=== PATIENT | male | born 1955 | race Asian ===

== ENCOUNTER 2019-03-27 17:54 | Inpatient (IN) | payer SELFPAY ==
[~2019-03-27] VITALS: Ht 165.1 cm; Wt 72.5 kg
[2019-03-27] MEDS ORDERED: CARV6 PO (17:58)
[2019-03-27] MEDS ORDERED: LOSA25TA41 PO (17:58)
[2019-03-27] MEDS ORDERED: GLIP5 PO (17:58)
[2019-03-27] MEDS ORDERED: ATOR20TA86 PO (17:58)
[2019-03-27] MEDS ORDERED: CLOP75TA3 PO (17:58)
[2019-03-27] MEDS ORDERED: ASPI81 PO (17:58)
[2019-03-27 18:35] LABS: EOSINOPHILS % (AUTO) 0.8 % (1.0-6.0); HEMATOCRIT 47.1 % (41-53); HEMOGLOBIN 15.6 g/dL (13.5-17.5); LYMPHOCYTES # (AUTO) 1.8 K/uL (1.0-4.8); LYMPHOCYTES % (AUTO) 16.9 % (22.0-44.0); MEAN CORPUSCULAR HEMOGLOBIN 31.1 pg (26.0-34.0); MEAN CORPUSCULAR HGB CONC 33.1 G/dL (31.0-37.0); MEAN CORPUSCULAR VOLUME 94 fL (80-100); MONOCYTES # (AUTO) 0.4 K/uL (0.1-1.0); MONOCYTES % (AUTO) 3.4 % (2.0-9.0); NEUTROPHILS # (AUTO) 8.2 K/uL (1.8-7.7); NEUTROPHILS % (AUTO) 77.9 % (40.0-70.0); PLATELET COUNT (AUTO) 214 K/uL (150-450); RED BLOOD CELL COUNT(AUTO) 5.01 MIL/uL (4.50-5.90); RED CELL DISTRIBUTION WIDTH 13.7 % (11.5-14.5)
[2019-03-27 18:39] LABS: CREATININE 1.48 mg/dL (0.60-1.30)
[2019-03-27 19:03] LABS: ALBUMIN 3.8 g/dL (3.4-5.0); BILIRUBIN,TOTAL 0.4 mg/dL (0.1-1.0); TOTAL PROTEIN, SERUM 7.7 g/dL (6.4-8.2)
[2019-03-27 19:31] LABS: INFLUENZA TYPE A NEGATIVE FOR TYPE A (NEGATIVE); INFLUENZA TYPE B NEGATIVE FOR TYPE B (NEGATIVE)
[2019-03-27] MEDS ORDERED: SODIUM CHLORIDE 0.9% 1,000 ML IV ONE ×4 (19:45→22:15)
[2019-03-27] MEDS ORDERED: AMOX TR/POT CLAV 500 MG/125 MG TABLET PO ONE (21:00)
[2019-03-27] MEDS ORDERED: DOXYCYCLINE HYCLATE 100 MG CAPSULE PO ONE (21:00)
[2019-03-27] MEDS ORDERED: BISACODYL 10 MG RECTAL RECTAL SUPPOSITORY PR PRN (21:30)
[2019-03-27] MEDS ORDERED: CefTRIAXone 1 GM/DEXTROSE 50 ML IV ONE (21:30)
[2019-03-27] MEDS ORDERED: ALBUTEROL SULFATE 2.5 MG/0.5 ML NEB SOLUTION NEB PRN (21:30)
[2019-03-27] MEDS ORDERED: DEXTROSE 50%-WATER 25 GM/50 ML SYRINGE IVP PRN (21:30)
[2019-03-27] MEDS ORDERED: AZITHROMYCIN 500 MG/NS 250 ML IV ONE (21:30)
[2019-03-27 22:03] LABS: LACTIC ACID 3.1 mmol/L (0.4-2.0)
[2019-03-27 22:31] LABS: APPEARANCE,URINE CLEAR (CLEAR); BILIRUBIN,URINE NEGATIVE (NEGATIVE); GLUCOSE, URINE (UA) 100 mg/dL (NEGATIVE); KETONES,URINE NEGATIVE (NEGATIVE); LEUKOCYTE ESTERASE ,URINE NEGATIVE (NEGATIVE); NITRATE,URINE NEGATIVE (NEGATIVE); OCCULT BLOOD,URINE NEGATIVE (NEGATIVE); PROTEIN,URINE NEGATIVE (NEGATIVE); UROBILINOGEN,URINE 0.2 mg/dL (<=1.0)
[2019-03-27 22:51] LABS: BACTERIA,URINE None Seen /HPF (None Seen); RBC,URINE 0-2 /HPF (0-2); WBC,URINE None Seen /HPF (0-5)
[2019-03-27 22:52] LABS: SQUAMOUS EPITHELIAL CELL,UR Rare /LPF (None Seen)
[2019-03-27 23:23] VITALS: BP 113/66
[2019-03-28 04:28] VITALS: BP 94/51
[2019-03-28] MEDS: ACETAMINOPHEN 325 MG TABLET PO PRN ×2 (04:31→16:35)
[2019-03-28] MEDS: GlipiZIDE 5 MG TABLET PO SCH ×2 (06:07→17:33)
[2019-03-28 06:44] LABS: GLUCOMETER DEV NAME(LOC) 5N.1; GLUCOSE,POINT OF CARE 162 MG/DL (70-110)
[2019-03-28 06:55] LABS: CALCIUM, TOTAL 7.9 mg/dL (8.8-10.5); CREATININE 1.34 mg/dL (0.60-1.30)
[2019-03-28 07:11] LABS: BASOPHILS % (AUTO) 0.1 % (0.0-2.0); EOSINOPHILS % (AUTO) 0.1 % (1.0-6.0); HEMATOCRIT 40.4 % (41-53); HEMOGLOBIN 13.4 g/dL (13.5-17.5); LYMPHOCYTES # (AUTO) 0.9 K/uL (1.0-4.8); LYMPHOCYTES % (AUTO) 8.5 % (22.0-44.0); MEAN CORPUSCULAR HEMOGLOBIN 31.1 pg (26.0-34.0); MEAN CORPUSCULAR VOLUME 94 fL (80-100); MONOCYTES # (AUTO) 0.4 K/uL (0.1-1.0); MONOCYTES % (AUTO) 4.2 % (2.0-9.0); NEUTROPHILS # (AUTO) 8.9 K/uL (1.8-7.7); PLATELET COUNT (AUTO) 184 K/uL (150-450); RED BLOOD CELL COUNT(AUTO) 4.29 MIL/uL (4.50-5.90)
[2019-03-28 07:13] LABS: NEUTROPHILS % (AUTO) 87.1 % (40.0-70.0)
[2019-03-28 07:45] LABS: LACTIC ACID 2.3 mmol/L (0.4-2.0)
[2019-03-28 07:58] VITALS: BP 101/62
[2019-03-28] MEDS: FAMOTIDINE 20 MG TABLET PO SCH (08:11)
[2019-03-28] MEDS: CLOPIDOGREL BISULFATE 75 MG TABLET PO SCH (08:11)
[2019-03-28] MEDS: ASPIRIN 81 MG CHEWABLE TABLET PO SCH (08:12)
[2019-03-28] MEDS: CARVEDILOL 6.25 MG TABLET PO SCH ×2 (08:12→21:00)
[2019-03-28] MEDS: DOCUSATE SODIUM 100 MG CAPSULE PO SCH ×2 (08:12→21:00)
[2019-03-28] MEDS: ATORVASTATIN CALCIUM 20 MG TABLET PO SCH (08:12)
[2019-03-28] MEDS ORDERED: HEPARIN SODIUM,PORCINE 5,000 UNITS/ML VIAL SQ SCH (09:00)
[2019-03-28 11:33] VITALS: BP 118/68
[2019-03-28 16:21] VITALS: BP 113/74
[2019-03-28] MEDS: BENZONATATE 100 MG CAPSULE PO SCH ×2 (16:35→23:37)
[2019-03-28 18:20] LABS: GLUCOMETER DEV NAME(LOC) 5N.2; GLUCOSE,POINT OF CARE 166 MG/DL (70-110)
[2019-03-28 20:54] VITALS: BP 108/60
[2019-03-28] MEDS: CefTRIAXone 1 GM/DEXTROSE 50 ML IV SCH (21:05)
[2019-03-28] MEDS: INSULIN LISPRO 100 UNITS/ML SQ PRN (21:38)
[2019-03-28] MEDS: AZITHROMYCIN 500 MG/NS 250 ML IV SCH (23:37)
[2019-03-29] VITALS (7 sets, daily range): BP systolic 111–148; BP diastolic 61–93
[2019-03-29] MEDS: GlipiZIDE 5 MG TABLET PO SCH ×2 (06:22→17:34)
[2019-03-29] MEDS: INSULIN LISPRO 100 UNITS/ML SQ PRN ×4 (06:33→22:35)
[2019-03-29 07:05] LABS: BASOPHILS % (AUTO) 0.1 % (0.0-2.0); EOSINOPHILS % (AUTO) 0.1 % (1.0-6.0); HEMATOCRIT 38.7 % (41-53); HEMOGLOBIN 12.8 g/dL (13.5-17.5); LYMPHOCYTES # (AUTO) 1.1 K/uL (1.0-4.8); MEAN CORPUSCULAR HEMOGLOBIN 31.1 pg (26.0-34.0); MEAN CORPUSCULAR VOLUME 94 fL (80-100); MONOCYTES # (AUTO) 0.8 K/uL (0.1-1.0); MONOCYTES % (AUTO) 4.8 % (2.0-9.0); NEUTROPHILS # (AUTO) 14.3 K/uL (1.8-7.7); PLATELET COUNT (AUTO) 178 K/uL (150-450); RED BLOOD CELL COUNT(AUTO) 4.11 MIL/uL (4.50-5.90); RED CELL DISTRIBUTION WIDTH 13.9 % (11.5-14.5)
[2019-03-29 07:17] LABS: ANION GAP 6 mmol/L (8-16); CALCIUM, TOTAL 8.6 mg/dL (8.8-10.5); CARBON DIOXIDE 22 mmol/L (22-29); CHLORIDE 103 mmol/L (98-107); CREATININE 1.16 mg/dL (0.60-1.30); GLOMERULAR FILTR. RATE CALC > 60 mL/min (>60); GLUCOSE,RANDOM 172 mg/dL (70-110); POTASSIUM 3.6 mmol/L (3.5-5.1); SODIUM SERUM 131 mmol/L (136-145); UREA NITROGEN, BLOOD 17 mg/dL (7-18)
[2019-03-29] MEDS: CLOPIDOGREL BISULFATE 75 MG TABLET PO SCH (09:03)
[2019-03-29] MEDS: DOCUSATE SODIUM 100 MG CAPSULE PO SCH ×2 (09:03→20:48)
[2019-03-29] MEDS: ATORVASTATIN CALCIUM 20 MG TABLET PO SCH (09:03)
[2019-03-29] MEDS: BENZONATATE 100 MG CAPSULE PO SCH ×3 (09:03→23:15)
[2019-03-29] MEDS: CARVEDILOL 6.25 MG TABLET PO SCH ×2 (09:04→20:48)
[2019-03-29] MEDS: FAMOTIDINE 20 MG TABLET PO SCH (09:04)
[2019-03-29] MEDS: ASPIRIN 81 MG CHEWABLE TABLET PO SCH (09:04)
[2019-03-29 11:45] LABS: GLUCOMETER DEV NAME(LOC) 5S.1; GLUCOSE,POINT OF CARE 199 MG/DL (70-110)
[2019-03-29 16:40] LABS: GLUCOMETER DEV NAME(LOC) 5S.1; GLUCOSE,POINT OF CARE 254 MG/DL (70-110)
[2019-03-29 18:49] LABS: GLUCOMETER DEV NAME(LOC) 5S.1; GLUCOSE,POINT OF CARE 215 MG/DL (70-110)
[2019-03-29] MEDS: ACETAMINOPHEN 325 MG TABLET PO PRN (20:47)
[2019-03-29] MEDS: CefTRIAXone 1 GM/DEXTROSE 50 ML IV SCH (20:48)
[2019-03-29] MEDS: AZITHROMYCIN 500 MG/NS 250 ML IV SCH (23:15)
[2019-03-30 04:37] VITALS: BP 116/72
[2019-03-30 06:18] LABS: BASOPHILS % (AUTO) 0.3 % (0.0-2.0); HEMATOCRIT 39.1 % (41-53); HEMOGLOBIN 12.6 g/dL (13.5-17.5); LYMPHOCYTES # (AUTO) 1.7 K/uL (1.0-4.8); MEAN CORPUSCULAR HEMOGLOBIN 30.4 pg (26.0-34.0); MEAN CORPUSCULAR HGB CONC 32.3 G/dL (31.0-37.0); MEAN CORPUSCULAR VOLUME 94 fL (80-100); MONOCYTES % (AUTO) 6.7 % (2.0-9.0); NEUTROPHILS # (AUTO) 11.4 K/uL (1.8-7.7); PLATELET COUNT (AUTO) 208 K/uL (150-450); RED BLOOD CELL COUNT(AUTO) 4.16 MIL/uL (4.50-5.90); RED CELL DISTRIBUTION WIDTH 13.7 % (11.5-14.5)
[2019-03-30] MEDS: GlipiZIDE 5 MG TABLET PO SCH ×2 (06:53→17:46)
[2019-03-30] MEDS: INSULIN LISPRO 100 UNITS/ML SQ PRN ×4 (06:56→21:38)
[2019-03-30 07:38] VITALS: BP 143/80
[2019-03-30] MEDS: BENZONATATE 100 MG CAPSULE PO SCH ×2 (08:34→17:46)
[2019-03-30] MEDS: CARVEDILOL 6.25 MG TABLET PO SCH ×2 (08:34→21:00)
[2019-03-30] MEDS: DOCUSATE SODIUM 100 MG CAPSULE PO SCH ×2 (08:34→21:00)
[2019-03-30] MEDS: FAMOTIDINE 20 MG TABLET PO SCH (08:34)
[2019-03-30] MEDS: ASPIRIN 81 MG CHEWABLE TABLET PO SCH (08:34)
[2019-03-30] MEDS: ATORVASTATIN CALCIUM 20 MG TABLET PO SCH (08:34)
[2019-03-30] MEDS: CLOPIDOGREL BISULFATE 75 MG TABLET PO SCH (08:34)
[2019-03-30 09:10] LABS: GLUCOMETER DEV NAME(LOC) 5S.1; GLUCOSE,POINT OF CARE 153 MG/DL (70-110)
[2019-03-30 09:10] LABS: GLUCOMETER DEV NAME(LOC) 5S.1; GLUCOSE,POINT OF CARE 113 MG/DL (70-110)
[2019-03-30 11:25] VITALS: BP 122/80
[2019-03-30 12:16] LABS: GLUCOMETER DEV NAME(LOC) 5S.2A; GLUCOSE,POINT OF CARE 148 MG/DL (70-110)
[2019-03-30 12:16] LABS: GLUCOMETER DEV NAME(LOC) 5S.2A; GLUCOSE,POINT OF CARE 174 MG/DL (70-110)
[2019-03-30 15:25] VITALS: BP 121/70
[2019-03-30 17:41] LABS: GLUCOMETER DEV NAME(LOC) 5N.2; GLUCOSE,POINT OF CARE 210 MG/DL (70-110)
[2019-03-30 20:05] LABS: GLUCOMETER DEV NAME(LOC) 5N.1; GLUCOSE,POINT OF CARE 146 MG/DL (70-110)
[2019-03-30 21:01] VITALS: BP 145/80
[2019-03-30] MEDS: ACETAMINOPHEN 325 MG TABLET PO PRN (21:35)
[2019-03-30] MEDS: CefTRIAXone 1 GM/DEXTROSE 50 ML IV SCH (23:18)
[2019-03-31] MEDS: BENZONATATE 100 MG CAPSULE PO SCH ×4 (00:05→21:49)
[2019-03-31] MEDS: AZITHROMYCIN 500 MG/NS 250 ML IV SCH ×2 (00:05→21:49)
[2019-03-31 00:38] VITALS: BP 120/76
[2019-03-31 03:24] LABS: GLUCOMETER DEV NAME(LOC) 5S.1; GLUCOSE,POINT OF CARE 193 MG/DL (70-110)
[2019-03-31 04:55] VITALS: BP 130/73
[2019-03-31] MEDS: GlipiZIDE 5 MG TABLET PO SCH ×2 (06:29→17:11)
[2019-03-31 07:54] VITALS: BP 122/72
[2019-03-31] MEDS: FAMOTIDINE 20 MG TABLET PO SCH (08:53)
[2019-03-31] MEDS: ATORVASTATIN CALCIUM 20 MG TABLET PO SCH (08:54)
[2019-03-31] MEDS: ASPIRIN 81 MG CHEWABLE TABLET PO SCH (08:54)
[2019-03-31] MEDS: CARVEDILOL 6.25 MG TABLET PO SCH ×2 (08:54→20:29)
[2019-03-31] MEDS: CLOPIDOGREL BISULFATE 75 MG TABLET PO SCH (08:54)
[2019-03-31] MEDS: DOCUSATE SODIUM 100 MG CAPSULE PO SCH ×2 (08:54→20:29)
[2019-03-31 10:59] LABS: LEGIONELLA PNEUMO AG URINE Negative (Negative); ORGANISM ID Not indicated.; S PNEUMO SOURCE Urine; STREP PNEUMONIAE AG URINE Negative (Negative); STREP.PNEUMO BODY FLUID CULT. Not Indicated
[2019-03-31 11:16] VITALS: BP 122/76
[2019-03-31] MEDS: INSULIN LISPRO 100 UNITS/ML SQ PRN ×3 (12:08→20:31)
[2019-03-31 13:25] LABS: GLUCOMETER DEV NAME(LOC) 5S.1; GLUCOSE,POINT OF CARE 225 MG/DL (70-110)
[2019-03-31 13:25] LABS: GLUCOMETER DEV NAME(LOC) 5S.1; GLUCOSE,POINT OF CARE 168 MG/DL (70-110)
[2019-03-31 15:39] VITALS: BP 130/76
[2019-03-31 19:54] LABS: GLUCOMETER DEV NAME(LOC) 5S.1; GLUCOSE,POINT OF CARE 216 MG/DL (70-110)
[2019-03-31] MEDS: ACETAMINOPHEN 325 MG TABLET PO PRN (20:29)
[2019-03-31] MEDS: CefTRIAXone 1 GM/DEXTROSE 50 ML IV SCH (20:30)
[2019-03-31] MEDS ORDERED: SODIUM CHLORIDE 0.9% 250 ML IV ONE (20:38)
[2019-03-31 20:48] VITALS: BP 124/79
[2019-04-01 00:15] VITALS: BP 96/70
[2019-04-01 04:54] VITALS: BP 111/76
[2019-04-01] MEDS: GlipiZIDE 5 MG TABLET PO SCH (06:22)
[2019-04-01] MEDS: INSULIN LISPRO 100 UNITS/ML SQ PRN ×2 (06:24→11:47)
[2019-04-01 06:33] LABS: ANION GAP 14 mmol/L (8-16); CALCIUM, TOTAL 9.4 mg/dL (8.8-10.5); CARBON DIOXIDE 22 mmol/L (22-29); CHLORIDE 99 mmol/L (98-107); GLOMERULAR FILTR. RATE CALC > 60 mL/min (>60); GLUCOSE,RANDOM 166 mg/dL (70-110); POTASSIUM 4.1 mmol/L (3.5-5.1); SODIUM SERUM 135 mmol/L (136-145); UREA NITROGEN, BLOOD 23 mg/dL (7-18)
[2019-04-01 06:38] LABS: BASOPHILS % (AUTO) 0.7 % (0.0-2.0); EOSINOPHILS % (AUTO) 3.3 % (1.0-6.0); HEMATOCRIT 44.2 % (41-53); HEMOGLOBIN 14.5 g/dL (13.5-17.5); LYMPHOCYTES # (AUTO) 2.2 K/uL (1.0-4.8); MEAN CORPUSCULAR HEMOGLOBIN 30.7 pg (26.0-34.0); MEAN CORPUSCULAR HGB CONC 32.7 G/dL (31.0-37.0); MEAN CORPUSCULAR VOLUME 94 fL (80-100); MONOCYTES % (AUTO) 10.9 % (2.0-9.0); NEUTROPHILS # (AUTO) 5.3 K/uL (1.8-7.7); NEUTROPHILS % (AUTO) 60.1 % (40.0-70.0); PLATELET COUNT (AUTO) 270 K/uL (150-450); RED BLOOD CELL COUNT(AUTO) 4.72 MIL/uL (4.50-5.90); RED CELL DISTRIBUTION WIDTH 13.7 % (11.5-14.5)
[2019-04-01 06:40] LABS: GLUCOMETER DEV NAME(LOC) 5S.1; GLUCOSE,POINT OF CARE 168 MG/DL (70-110)
[2019-04-01 06:40] LABS: GLUCOMETER DEV NAME(LOC) 5S.2A; GLUCOSE,POINT OF CARE 165 MG/DL (70-110)
[2019-04-01 07:39] VITALS: BP 131/81
[2019-04-01] MEDS: BENZONATATE 100 MG CAPSULE PO SCH (08:25)
[2019-04-01] MEDS: ASPIRIN 81 MG CHEWABLE TABLET PO SCH (08:25)
[2019-04-01] MEDS: ATORVASTATIN CALCIUM 20 MG TABLET PO SCH (08:25)
[2019-04-01] MEDS: FAMOTIDINE 20 MG TABLET PO SCH (08:25)
[2019-04-01] MEDS: CARVEDILOL 6.25 MG TABLET PO SCH (08:25)
[2019-04-01] MEDS: CLOPIDOGREL BISULFATE 75 MG TABLET PO SCH (08:25)
[2019-04-01] MEDS: DOCUSATE SODIUM 100 MG CAPSULE PO SCH (08:27)
[2019-04-01 10:48] VITALS: BP 151/84
[2019-04-01] MEDS: ACETAMINOPHEN 325 MG TABLET PO PRN (11:11)
[2019-04-03 17:45] LABS: GLUCOMETER DEV NAME(LOC) 5S.2A; GLUCOSE,POINT OF CARE 167 MG/DL (70-110)
== END 2019-04-01 12:30 | disposition home or self-care (01) | DRG 871 ==
LOC: EMS 17:56 → 5S 21:30 → 5N 03-28 11:00
PROVIDERS: ADMIT Internal Medicine; ATTEND Internal Medicine
DX: A41.9 Sepsis, unspecified organism (principal); J18.1 Lobar pneumonia, unspecified organism; N17.9 Acute kidney failure, unspecified; R04.2 Hemoptysis; E11.22 Type 2 diabetes mellitus with diabetic chronic kidney disease; N18.3 Chronic kidney disease, stage 3 (moderate); J45.909 Unspecified asthma, uncomplicated; I25.10 Atherosclerotic heart disease of native coronary artery without angina pectoris; J84.10 Pulmonary fibrosis, unspecified; E78.00 Pure hypercholesterolemia, unspecified; E78.5 Hyperlipidemia, unspecified; I12.9 Hypertensive chronic kidney disease with stage 1 through stage 4 chronic kidney disease, or unspecified chronic kidney disease; Z83.3 Family history of diabetes mellitus; Z95.5 Presence of coronary angioplasty implant and graft; Z82.49 Family history of ischemic heart disease and other diseases of the circulatory system; Z79.899 Other long term (current) drug therapy
CPT/HCPCS: 71250; 83605; 87015; 87040; 87206; 87449; 87804; 87899; 93005; 93306; G0378; J0456; J0696; J1644; J7030; J7050

== ENCOUNTER → 2019-06-05 | Outpatient (CLI) | payer MEDICAID ==
[~2019-06-05] MED LIST: ASPI81 PO; ATOR20TA86 PO; CARV6 PO; CLOP75TA3 PO; GLIP5 PO
== END | disposition home or self-care (01) ==
LOC: RADPV 11:15
PROVIDERS: ATTEND Internal Medicine Nephrology
DX: I10 Essential (primary) hypertension (principal); E11.43 Type 2 diabetes mellitus with diabetic autonomic (poly)neuropathy
CPT/HCPCS: 76770

== ENCOUNTER 2019-08-14 06:00 | Day surgery (SDC) | payer OTHER ==
[~2019-08-14] VITALS: Ht 157.5 cm; Wt 70.9 kg
[~2019-08-14 06:00] MED LIST changes: +SODIUM CHLORIDE 0.9% 1,000 ML ONE
[2019-08-14] MEDS ORDERED: LIDOCAINE 2% 30 ML JELLY TP ONE (06:01)
[2019-08-14] MEDS ORDERED: LIDOCAINE 4% 50 ML SOLUTION TP ONE (06:01)
[2019-08-14] MEDS ORDERED: ALBUTEROL SULFATE 2.5 MG/0.5 ML NEB SOLUTION NEB ONE (06:01)
[2019-08-14] MEDS ORDERED: BENZOCAINE 20% 50 MCG/SPRAY 57 GM TP ONE (06:01)
[2019-08-14] MEDS ORDERED: METF-960 PO (06:14)
[2019-08-14] MEDS ORDERED: OMEP20 PO (06:14)
[2019-08-14] MEDS ORDERED: FLUT16H NASAL (06:14)
[2019-08-14] MEDS ORDERED: LINA5TAB PO (06:14)
[2019-08-14] MEDS ORDERED: MONT10TA21 PO (06:14)
[2019-08-14] MEDS ORDERED: HYDR25TA PO (06:14)
[2019-08-14] MEDS ORDERED: SODIUM CHLORIDE 0.9% 1,000 ML IV ONE (06:30)
[2019-08-14] MEDS ORDERED: MIDAZOLAM HCL 2 MG/2 ML VIAL ONE (07:09)
[2019-08-14] MEDS ORDERED: FentaNYL CITRATE-PF 100 MCG/2 ML VIAL ONE (07:09)
[2019-08-14 07:19] LABS: GLUCOMETER DEV NAME(LOC) SDS.; GLUCOSE,POINT OF CARE 140 MG/DL (70-110)
[2019-08-14] MEDS ORDERED: MethylPREDNISolone SOD SUCC 125 MG/2 ML VIAL ONE (08:41)
[2019-08-14] MEDS ORDERED: MethylPREDNISolone SOD SUCC 125 MG/2 ML VIAL IVP ONE (08:45)
[2019-08-14] MEDS ORDERED: OXYGEN THERAPY IH SCH (20:00)
== END 2019-08-14 10:15 | disposition home or self-care (01) ==
LOC: SURGERY 06:00
PROVIDERS: ATTEND Internal Medicine Critical Care Medicine
DX: R05 Cough (principal); R91.1 Solitary pulmonary nodule; J34.89 Other specified disorders of nose and nasal sinuses; J98.8 Other specified respiratory disorders; J38.4 Edema of larynx; B37.0 Candidal stomatitis; Z79.899 Other long term (current) drug therapy; R19.09 Other intra-abdominal and pelvic swelling, mass and lump
CPT/HCPCS: 31623; 31624; 71045; 82962; 87015; 87070; 87101; 87205; 87206; 87220; 88184; 88185; 93005; J2250; J2930; J3010; J7030; 88108; 88312

== ENCOUNTER 2022-06-11 05:56 | Day surgery (SDC) | payer OTHER ==
[2022-06-08 14:32] LABS: COVID AG,FIA SOURCE NASOPHARYNGEAL
[~2022-06-11] VITALS: Ht 157.5 cm; Wt 65.9 kg
[~2022-06-11 05:56] MED LIST changes: +ASPI-1450 PO; -ASPI81 PO; -ATOR20TA86 PO; -CLOP75TA3 PO; +CLOP75TA60 PO; +FLUT16H NASAL; -GLIP5 PO; +GLIP5TAB12 PO; +HYDR25TA2 PO; +LINA5TAB PO; +METF-1211 PO; +MONT-35 PO; +OMEP20 PO; -SODIUM CHLORIDE 0.9% 1,000 ML ONE
[2022-06-11] MEDS ORDERED: LIDOCAINE 4% 50 ML SOLUTION TP ONE (05:57)
[2022-06-11] MEDS ORDERED: LIDOCAINE 2% 11 ML JELLY TP ONE (05:57)
[2022-06-11] MEDS ORDERED: BENZOCAINE 20% 50 MCG/SPRAY 57 GM TP ONE (05:57)
[2022-06-11] MEDS ORDERED: ALBUTEROL SULFATE 2.5 MG/0.5 ML NEB SOLUTION NEB ONE (05:57)
[2022-06-11 06:43] LABS: COVID AG,FIA SOURCE NASAL SWAB
[2022-06-11] MEDS ORDERED: SODIUM CHLORIDE 0.9% 1,000 ML IV ONE (07:00)
[2022-06-11] MEDS ORDERED: SODIUM CHLORIDE 0.9% 1,000 ML ONE (07:01)
[2022-06-11 07:35] LABS: GLUCOMETER DEV NAME(LOC) SDS.; GLUCOSE,POINT OF CARE 127 MG/DL (70-110)
[2022-06-11] MEDS ORDERED: FentaNYL CITRATE PF 100 MCG/2 ML VIAL ONE (08:19)
[2022-06-11] MEDS ORDERED: MIDAZOLAM HCL 5 MG/ML VIAL ONE (08:19)
[2022-06-11] MEDS ORDERED: MethylPREDNISolone SOD SUCC 125 MG/2 ML VIAL ONE (09:10)
[2022-06-11] MEDS ORDERED: MethylPREDNISolone SOD SUCC 125 MG/2 ML VIAL IVP ONE (09:15)
[2022-06-11] MEDS ORDERED: OXYGEN THERAPY IH SCH (20:00)
== END 2022-06-11 10:20 | disposition home or self-care (01) ==
LOC: SURGERY 05:56
PROVIDERS: ATTEND Internal Medicine Critical Care Medicine
DX: J38.4 Edema of larynx (principal); B37.0 Candidal stomatitis; I10 Essential (primary) hypertension; M19.90 Unspecified osteoarthritis, unspecified site; E78.00 Pure hypercholesterolemia, unspecified; Z86.73 Personal history of transient ischemic attack (TIA), and cerebral infarction without residual deficits; Z20.822 Contact with and (suspected) exposure to COVID-19; Z79.899 Other long term (current) drug therapy; Z98.890 Other specified postprocedural states; Z95.5 Presence of coronary angioplasty implant and graft; Z87.01 Personal history of pneumonia (recurrent)
CPT/HCPCS: 87426 ×2; 31623; 82962; 87206; 87101; 87220; 87070; 31624; 94640; 71045; 87015; 93005; C9803 ×2; J3010; J2930; J2250; Q9967; J7030; J7613; Z7610

== ENCOUNTER 2024-08-21 06:47 | Day surgery (SDC) | payer OTHER ==
[~2024-08-21] VITALS: Ht 157.5 cm; Wt 65.8 kg
[~2024-08-21 06:47] MED LIST changes: -FLUT16H NASAL; +FLUT16SP NASAL; -GLIP5TAB12 PO; +GLIP5TAB16 PO
[2024-08-21] MEDS ORDERED: LIDOCAINE 2% 11 ML JELLY TP ONE (06:48)
[2024-08-21] MEDS ORDERED: BENZOCAINE 20% 50 MCG/SPRAY 57 GM TP ONE (06:48)
[2024-08-21] MEDS ORDERED: LIDOCAINE 4% 50 ML SOLUTION TP ONE (06:48)
[2024-08-21] MEDS ORDERED: ALBUTEROL SULFATE 2.5 MG/0.5 ML NEB SOLUTION NEB ONE (06:48)
[2024-08-21] MEDS ORDERED: SODIUM CHLORIDE 0.9% 1,000 ML ONE (07:00)
[2024-08-21] MEDS ORDERED: NALOXONE HCL 0.4 MG/ML VIAL ONE (07:26)
[2024-08-21] MEDS ORDERED: EPINEPHrine 1:10,000 [1 MG/10 ML] SYRINGE ONE (07:26)
[2024-08-21] MEDS ORDERED: FLUMAZENIL 0.1 MG/ML 5 ML VIAL IVP ONE (07:26)
[2024-08-21] MEDS ORDERED: FentaNYL CITRATE PF 100 MCG/2 ML VIAL ONE (07:27)
[2024-08-21] MEDS ORDERED: ATROPINE SULFATE 0.1 MG/ML 10 ML SYRINGE IVP ONE (07:27)
[2024-08-21] MEDS ORDERED: DiphenhydrAMINE HCL 50 MG/ML VIAL ONE (07:27)
[2024-08-21] MEDS ORDERED: SODIUM TETRADECYL SULFATE 3% 60 MG/2 ML VIAL IVP ONE (07:27)
[2024-08-21] MEDS ORDERED: MIDAZOLAM HCL 2 MG/2 ML VIAL ONE (07:27)
[2024-08-21 08:11] LABS: GLUCOMETER DEV NAME(LOC) SDS.; GLUCOSE,POINT OF CARE 128 MG/DL (70-110)
[2024-08-21] MEDS ORDERED: AMLO-257 PO (08:33)
[2024-08-21] MEDS ORDERED: FLUT16SP NASAL (08:33)
[2024-08-21] MEDS ORDERED: DOXA2TAB86 PO (08:33)
[2024-08-21] MEDS ORDERED: DAPA10TA PO (08:33)
[2024-08-21] MEDS ORDERED: EVOL140P3 SQ (08:33)
[2024-08-21] MEDS ORDERED: TAMS0.4C94 PO (08:33)
[2024-08-21 09:25] VITALS: PULSE 63; RESP 16; O2SAT 98
[2024-08-21] MEDS: FentaNYL CITRATE PF 100 MCG/2 ML VIAL IVP ONE (09:25)
[2024-08-21] MEDS: MIDAZOLAM HCL 2 MG/2 ML VIAL IVP ONE (09:25)
[2024-08-21] MEDS ORDERED: MethylPREDNISolone SOD SUCC 125 MG/2 ML VIAL ONE (09:59)
[2024-08-21] MEDS: SODIUM CHLORIDE 0.9% 1,000 ML IV ONE (10:12)
[2024-08-21] MEDS: MethylPREDNISolone SOD SUCC 125 MG/2 ML VIAL IVP ONE (10:26)
== END 2024-08-21 11:15 | disposition home or self-care (01) ==
LOC: SURGERY 06:47
PROVIDERS: ATTEND Internal Medicine Critical Care Medicine
DX: J38.4 Edema of larynx (principal); B37.0 Candidal stomatitis; J44.9 Chronic obstructive pulmonary disease, unspecified; I10 Essential (primary) hypertension; E11.9 Type 2 diabetes mellitus without complications; I25.2 Old myocardial infarction; Z79.899 Other long term (current) drug therapy; Z95.5 Presence of coronary angioplasty implant and graft; Z86.73 Personal history of transient ischemic attack (TIA), and cerebral infarction without residual deficits
CPT/HCPCS: 31623; 82962; 87206; 87101; 87220; 87070; 88108; 31624; 94640; 71045; 87015; J3010; J2250; J2919; J7030; J0171; J0461; J1200; J2310; J3490; J7613; Z7610